=== PATIENT | male | born 1945 | race Caucasian/White ===

== ENCOUNTER → 2017-08-10 | Outpatient (CLI) | payer MEDICARE | END | disposition home or self-care (01) | LOC: CFH 10:33 | PROVIDERS: ATTEND Internal Medicine Critical Care Medicine | DX: Z12.2 Encounter for screening for malignant neoplasm of respiratory organs (principal); J44.9 Chronic obstructive pulmonary disease, unspecified; I25.10 Atherosclerotic heart disease of native coronary artery without angina pectoris; J94.8 Other specified pleural conditions; R91.8 Other nonspecific abnormal finding of lung field; Z87.891 Personal history of nicotine dependence | CPT/HCPCS: G0297 ==

== ENCOUNTER → 2018-04-16 | Outpatient (CLI) | payer MEDICARE | END | disposition home or self-care (01) | LOC: CFH 10:21 | PROVIDERS: ATTEND Internal Medicine Critical Care Medicine | DX: J92.0 Pleural plaque with presence of asbestos (principal); R91.1 Solitary pulmonary nodule; J43.8 Other emphysema; R59.9 Enlarged lymph nodes, unspecified | CPT/HCPCS: 71250 ==